=== PATIENT | male | born 1970 | race Caucasian/White ===

== ENCOUNTER 2017-01-27 14:56 | Inpatient (IN) | payer MEDICARE ==
[2017-01-27] MEDS ORDERED: NITROGLYCERIN OINT 1 INCH/GM PACKET TOPICAL STA (15:14)
[2017-01-27] MEDS ORDERED: ASPIRIN 81 MG CHEW PO STA (15:15)
[2017-01-27] MEDS ORDERED: hydrALAZINE HCL 20 MG/ML 1 ML VIAL IVP STA (15:15)
--- NOTE | 2017-01-27 15:17 | ED ---
General Adult HPI - General Chief complaint: Chest Pain Stated complaint: Hypertension Time Seen by Provider: 01/27/17 15:00 Source: patient, RN notes reviewed Mode of arrival: ambulatory Limitations: no limitations - History of Present Illness Initial comments: This is a 46-year-old male who presents emergency Department complaining that he has had right-sided chest pain for a week he states the pain is constant. Patient states the pain is been getting worse throughout the week. Patient decided to go see his primary medical care doctor today at which point time he is told blood pressures 230 for the doctor [facility] emergency department. Patient states he has not noted any difficult breathing with this chest pain he denies any diaphoresis. Patient denies any nausea. Patient denies abdominal pain patient denies any back pain or injury. Patient denies any headache patient denies numbness weakness. Patient denies lightheadedness dizziness or numbness up so. Patient denies any recent fever chills or cough. Patient denies any palpitations. - Related Data Home Medications Medication Instructions Recorded Confirmed Diazepam [Valium] 5 mg PO HS 01/27/17 01/27/17 HYDROcodone/APAP 10-325MG [[place] 1 tab PO TID PRN 01/27/17 01/27/17 10-325] Allergies Allergy/AdvReac Type Severity Reaction Status Date / Time No Known Allergies Allergy Verified 01/27/17 15:42 Review of Systems ROS Statement: Those systems with pertinent positive or pertinent negative responses have been documented in the HPI. ROS Other: All systems not noted in ROS Statement are negative. Past Medical History Past Medical History: No Reported History History of Any Multi-Drug Resistant Organisms: None Reported Past Surgical History: Hernia Repair Additional Past Surgical History / Comment(s): back Past Psychological History: No Psychological Hx Reported Smoking Status: Current every day smoker Past Alcohol Use History: None Reported Past Drug Use History: Marijuana General Exam - General Exam Comments Initial Comments: GENERAL: Patient is well-developed and well-nourished. Patient is nontoxic and well- hydrated and is in mild distress. ENT: Neck is soft and supple. No significant lymphadenopathy is noted. Oropharynx is clear. Moist mucous membranes. Neck has full range of motion without eliciting any pain. EYES: The sclera were anicteric and conjunctiva were pink and moist. Extraocular movements were intact and pupils were equal round and reactive to light. Eyelids were unremarkable. PULMONARY: Unlabored respirations. Good breath sounds bilaterally. No audible rales rhonchi or wheezing was noted. CARDIOVASCULAR: There is a regular rate and rhythm without any murmurs gallops or rubs. ABDOMEN: Soft and nontender with normal bowel sounds. No palpable organomegaly was noted. There is no palpable pulsatile mass. SKIN: Skin is clear with no lesions or rashes and otherwise unremarkable. NEUROLOGIC: Patient is alert and oriented x3. Cranial nerves II through XII are grossly intact. Motor and sensory are also intact. Normal speech, volume and content. Symmetrical smile. MUSCULOSKELETAL: Normal extremities with adequate strength and full range of motion. No lower extremity swelling or edema. No calf tenderness. LYMPHATICS: No significant lymphadenopathy is noted PSYCHIATRIC: Normal psychiatric evaluation. Normal interpersonal interactions appears functionally intact in deals appropriately with others. No signs of depression. No signs of anxiety. Limitations: no limitations Course Vital Signs 01/27/17 01/27/17 01/27/17 14:57 15:57 16:32 Temperature 97.6 F 98.3 F Pulse Rate 120 H 101 H 95 Respiratory 18 16 16 Rate Blood Pressure 227/131 205/121 196/124 O2 Sat by Pulse 99 97 99 Oximetry Medical Decision Making - Medical Decision Making EKG shows sinus tachycardia at 101 bpm NE interval is 142 QRS is under 12 QTC intervals 400 QTC is 518. Patient's EKG shows no ST segment elevation or depression or T-wave abdomen is noted. Chest x-ray showed no acute abnormality. A spoke with Dr. Izaguirre doctors she wanted the patient admitted the patient. - Lab Data Result diagrams: 01/27/17 15:45 01/27/17 15:45 Lab Results 01/27/17 01/27/17 01/27/17 Range/Units 15:45 15:45 15:45 WBC 12.1 H (3.8-10.6) k/uL RBC 5.83 (4.30-5.90) m/uL Hgb 17.5 (13.0-17.5) gm/dL Hct 54.3 H (39.0-53.0) % MCV 93.1 (80.0-100.0) fL MCH 30.0 (25.0-35.0) pg MCHC 32.2 (31.0-37.0) g/dL RDW 14.7 (11.5-15.5) % Plt Count 234 (150-450) k/uL Neutrophils % 66 % Lymphocytes % 24 % Monocytes % 6 % Eosinophils % 2 % Basophils % 1 % Neutrophils # 7.9 H (1.3-7.7) k/uL Lymphocytes # 2.9 (1.0-4.8) k/uL Monocytes # 0.7 (0-1.0) k/uL Eosinophils # 0.2 (0-0.7) k/uL Basophils # 0.1 (0-0.2) k/uL PT (9.0-12.0) sec INR (<1.1) APTT (22.0-30.0) sec Sodium 146 H (137-145) mmol/L Potassium 4.2 (3.5-5.1) mmol/L Chloride 106 (98-107) mmol/L Carbon Dioxide 31 H (22-30) mmol/L Anion Gap 9 mmol/L BUN 18 (9-20) mg/dL Creatinine 1.17 (0.66-1.25) mg/dL Est GFR (MDRD) Af Amer >60 (>60 ml/min/1.73 sqM) Est GFR (MDRD) Non-Af >60 (>60 ml/min/1.73 sqM) Glucose 98 (74-99) mg/dL Calcium 9.9 (8.4-10.2) mg/dL Magnesium 2.1 (1.6-2.3) mg/dL Total Bilirubin 0.8 (0.2-1.3) mg/dL AST 33 (17-59) U/L ALT 44 (21-72) U/L Alkaline Phosphatase 101 (38-126) U/L Total Creatine Kinase 57 (55-170) U/L CK-MB (CK-2) 0.7 (0.0-2.4) ng/mL CK-MB (CK-2) Rel Index 1.2 Troponin I <0.012 (0.000-0.034) ng/mL Total Protein 7.8 (6.3-8.2) g/dL Albumin 4.6 (3.5-5.0) g/dL 01/27/17 Range/Units 15:45 WBC (3.8-10.6) k/uL RBC (4.30-5.90) m/uL Hgb (13.0-17.5) gm/dL Hct (39.0-53.0) % MCV (80.0-100.0) fL MCH (25.0-35.0) pg MCHC (31.0-37.0) g/dL RDW (11.5-15.5) % Plt Count (150-450) k/uL Neutrophils % % Lymphocytes % % Monocytes % % Eosinophils % % Basophils % % Neutrophils # (1.3-7.7) k/uL Lymphocytes # (1.0-4.8) k/uL Monocytes # (0-1.0) k/uL Eosinophils # (0-0.7) k/uL Basophils # (0-0.2) k/uL PT 10.3 (9.0-12.0) sec INR 1.0 (<1.1) APTT 24.5 (22.0-30.0) sec Sodium (137-145) mmol/L Potassium (3.5-5.1) mmol/L Chloride (98-107) mmol/L Carbon Dioxide (22-30) mmol/L Anion Gap mmol/L BUN (9-20) mg/dL Creatinine (0.66-1.25) mg/dL Est GFR (MDRD) Af Amer (>60 ml/min/1.73 sqM) Est GFR (MDRD) Non-Af (>60 ml/min/1.73 sqM) Glucose (74-99) mg/dL Calcium (8.4-10.2) mg/dL Magnesium (1.6-2.3) mg/dL Total Bilirubin (0.2-1.3) mg/dL AST (17-59) U/L ALT (21-72) U/L Alkaline Phosphatase (38-126) U/L Total Creatine Kinase (55-170) U/L CK-MB (CK-2) (0.0-2.4) ng/mL CK-MB (CK-2) Rel Index Troponin I (0.000-0.034) ng/mL Total Protein (6.3-8.2) g/dL Albumin (3.5-5.0) g/dL Disposition Clinical Impression: Chest pain, Hypertensive urgency Disposition: ADMITTED IP TO THIS HOSP Referrals: James Izaguirre MD [Primary Care Provider] - 1-2 days Time of Disposition: 17:02
--- NOTE | 2017-01-27 16:03 | XR ---
EXAMINATION TYPE: XR chest 2V DATE OF EXAM: 01/27/2017 HISTORY: Chest Pain. REFERENCE: Previous study dated 11/13/2013. FINDINGS: There has been a previous ACDF in the lower cervical spine. The lungs are clear. Pleural space are clear. Heart size is normal. There is mild unfolding of the th oracic aorta. IMPRESSION: NO ACUTE INTRATHORACIC ABNORMALITY.
[2017-01-27 16:11] LABS: Basophils # (A) 0.1 k/uL (0-0.2); Basophils % (A) 1 %; CH 30.7; CHCM 33.1; Eosinophils # (A) 0.2 k/uL (0-0.7); Eosinophils % (A) 2 %; HCT 54.3 % (39.0-53.0); HDW 2.54; HGB 17.5 gm/dL (13.0-17.5); Luc # (Auto) 0.25; Luc % (Auto) 2; Lymphocytes # (A) 2.9 k/uL (1.0-4.8); Lymphocytes % (A) 24 %; MCHC 32.2 g/dL (31.0-37.0); MCV 93.1 fL (80.0-100.0); Mean Platelet Volume 7.5; Monocytes # (A) 0.7 k/uL (0-1.0); Monocytes % (A) 6 %; Neutrophils # (A) 7.9 k/uL (1.3-7.7); Neutrophils % (A) 66 %; RBC 5.83 m/uL (4.30-5.90); RDW 14.7 % (11.5-15.5); WBC 12.1 k/uL (3.8-10.6); WBC (Perox) 11.74
[2017-01-27 16:16] LABS: ALT 44 U/L (21-72); AST 33 U/L (17-59); Alkaline Phosphatase 101 U/L (38-126); Anion Gap 9 mmol/L; Blood Urea Nitrogen 18 mg/dL (9-20); Calcium 9.9 mg/dL (8.4-10.2); Carbon Dioxide 31 mmol/L (22-30); Chloride 106 mmol/L (98-107); Glucose 98 mg/dL (74-99); Magnesium 2.1 mg/dL (1.6-2.3); Non-African American GFR(MDRD) >60 (>60 ml/min/1.73 sqM); Partial Thromboplastin Time 24.5 sec (22.0-30.0); Potassium 4.2 mmol/L (3.5-5.1); Prothrombin Time 10.3 sec (9.0-12.0); Sodium 146 mmol/L (137-145); Total Bilirubin 0.8 mg/dL (0.2-1.3); Total Protein 7.8 g/dL (6.3-8.2)
[2017-01-27] MEDS ORDERED: LABETALOL 5 MG/ML VIAL MDV IVP STA ×2 (16:22→17:42)
[2017-01-27] MEDS ORDERED: LORazepam 2 MG/ML SYRINGE IV STA (16:22)
[2017-01-27 16:24] LABS: Creatine Kinase 57 U/L (55-170)
[2017-01-27 16:37] LABS: Creatine Kinase MB 0.7 ng/mL (0.0-2.4); Troponin I <0.012 ng/mL (0.000-0.034)
[2017-01-27] MEDS ORDERED: NITROGLYCERIN SL TABS 0.4 MG TAB SUBLINGUAL PRN (17:02)
[2017-01-27] MEDS ORDERED: LOSARTAN 50 MG TAB PO STA (19:36)
[2017-01-27] MEDS ORDERED: RX INFO: IV CONTRAST WAS GIVEN 1 EACH MISC MISCELLANE PRN (20:22)
--- NOTE | 2017-01-27 20:38 | P.CRDCN ---
History of Present Illness Consult reason: chest pain, hypertension History of present illness: Patient interviewed and examined Hypertensive urgency Right-sided chest discomfort radiating through into the interscapular region Dyslipidemia Likely obstructive sleep apnea Nondiabetic Current smoker ECG does not show any evidence for ischemia or any ST abnormalities, first troponin normal Plan Losartan 100 mg stat and then every morning Amlodipine at 11 PM tonight and then every afternoon Lipid panel in a.m. 2-D echo in a.m. 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 LIVES WITH AND 1 SON IN A SINGLE STORY HOME THAT HAS 5 STEPS. 1 PET CAT. 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 Smoking Status: Current every day smoker Past Alcohol Use History: None Reported Additional Past Alcohol Use History / Comment(s): STARTED SMOKING AT AGE 16(1985 ) SMOKES 1 PPD. Past Drug Use History: Marijuana - Past Family History Father Family Medical History: No Reported History Mother Family Medical History: No Reported History Additional Family Medical History / Comment(s): GRANDFATHER HAD DM Medications and Allergies Home Medications Medication Instructions Recorded Confirmed Type Diazepam [Valium] 5 mg PO HS 01/27/17 01/27/17 History HYDROcodone/APAP 10-325MG [[place] 1 tab PO TID PRN 01/27/17 01/27/17 History 10-325] Allergies Allergy/AdvReac Type Severity Reaction Status Date / Time No Known Allergies Allergy Verified 01/27/17 15:42 Physical Exam Vitals: Vital Signs Temp Pulse Resp BP Pulse Ox 01/27/17 17:55 85 16 163/108 95 01/27/17 17:26 180/124 01/27/17 17:19 184/122 01/27/17 17:05 180/118 01/27/17 16:49 173/115 01/27/17 16:32 95 16 196/124 99 01/27/17 15:57 98.3 F 101 H 16 205/121 97 01/27/17 15:34 116 H 227/133 01/27/17 15:15 228/147 01/27/17 14:57 97.6 F 120 H 18 227/131 99 Intake and Output 01/27/17 01/27/17 01/27/17 06:59 14:59 22:59 Other: Weight 78.018 kg Patient Weight 01/28/17 06:59 Weight 78.018 kg Results 01/27/17 15:45 01/27/17 15:45 Cardiac Enzymes 01/27/17 01/27/17 Range/Units 15:45 15:45 AST 33 (17-59) U/L CK-MB (CK-2) 0.7 (0.0-2.4) ng/mL Troponin I <0.012 (0.000-0.034) ng/mL Coagulation 01/27/17 Range/Units 15:45 PT 10.3 (9.0-12.0) sec APTT 24.5 (22.0-30.0) sec CBC 01/27/17 Range/Units 15:45 WBC 12.1 H (3.8-10.6) k/uL RBC 5.83 (4.30-5.90) m/uL Hgb 17.5 (13.0-17.5) gm/dL Hct 54.3 H (39.0-53.0) % Plt Count 234 (150-450) k/uL Comprehensive Metabolic Panel 01/27/17 Range/Units 15:45 Sodium 146 H (137-145) mmol/L Potassium 4.2 (3.5-5.1) mmol/L Chloride 106 (98-107) mmol/L Carbon Dioxide 31 H (22-30) mmol/L BUN 18 (9-20) mg/dL Creatinine 1.17 (0.66-1.25) mg/dL Glucose 98 (74-99) mg/dL Calcium 9.9 (8.4-10.2) mg/dL AST 33 (17-59) U/L ALT 44 (21-72) U/L Alkaline Phosphatase 101 (38-126) U/L Total Protein 7.8 (6.3-8.2) g/dL Albumin 4.6 (3.5-5.0) g/dL Current Medications Generic Name Dose Route Start Last Admin Trade Name Freq PRN Reason Stop Dose Admin Amlodipine Besylate 10 mg 01/27/17 23:00 Norvasc PO 01/27/17 23:01 ONCE ONE Amlodipine Besylate 10 mg 01/28/17 17:00 Norvasc PO DAILY@1700 [facility] Aspirin 325 mg 01/28/17 09:00 Aspirin PO DAILY [facility] Losartan Potassium 100 mg 01/28/17 09:00 Cozaar PO DAILY [facility] Miscellaneous Information 1 each 01/27/17 20:22 Rx Info: Iv Contrast Was Given MISCELLANE 01/29/17 20:23 DAILY PRN Per Protocol Nitroglycerin 1 inch 01/28/17 00:00 Nitro-Bid Oint TOPICAL Q6HR [facility] Nitroglycerin 0.4 mg 01/27/17 17:02 Nitrostat SUBLINGUAL Q5M PRN Chest Pain Intake and Output 01/27/17 01/27/17 01/27/17 06:59 14:59 22:59 Other: Weight 78.018 kg Patient Weight 01/28/17 06:59 Weight 78.018 kg 01/27/17 15:45 01/27/17 15:45
[2017-01-27] MEDS ORDERED: ACETAMINOPHEN TAB 325 MG TAB PO PRN (20:39)
--- NOTE | 2017-01-27 21:14 | CT ---
EXAMINATION TYPE: CT angio chest DATE OF EXAM: 01/27/2017 COMPARISON: NONE HISTORY: Right sided shoulder and chest pain with hypertension. CT DLP: 515.40 mGycm. Automated Exposure Control for Dose Reduction was Utilized. CONTRAST: CTA scan of the thorax is performed without and with IV Contrast, patient injected with 100 mL of Omn ipaque 350, pulmonary embolism protocol. MIP Images are created on CT scanner and reviewed. FINDINGS: LUNGS: The lungs are clear. Within the superior segment of the right lower lobe there is a 6 mm nonca lcified pulmonary nodule adjacent to a segmental pulmonary artery on image 36. Additionally within th e left lower lobe on the same image peripherally oriented in the subpleural location there is a 5 mm noncalcified pulmonary nodule. Within the posterior basilar segment of the left lower lobe there is a n additional noncalcified pulmonary nodule measuring 6.3 mm. Minimal bibasilar subsegmental atelectas is is noted. Another subpleural 3 mm pulmonary nodule is seen within the posterior basilar segment of the right lower lobe, also noncalcified. Within the right middle lobe there is a 4 mm pulmonary nodu le additionally within the lingula there is a 6 mm pulmonary nodule another right lower lobe pulmonar y nodule measures 4 mm and another right lower lobe pulmonary nodule measures 4 mm. There is no ple ural effusion or pneumothorax seen. The tracheobronchial tree is patent. MEDIASTINUM: Peripherally calcified mediastinal lymph nodes are present the largest measuring 9 mm in short axis in the pretracheal space. There is satisfactory enhancement of the pulmonary artery and i ts branches, there is no CT evidence for pulmonary embolism. There are no greater than 1 cm hilar or mediastinal lymph nodes. No cardiomegaly or pericardial effusion is seen. Portions of anterior cer vical fusion device are noted. OTHER: No additional significant abnormality is seen. The left kidney appears to be slightly malrota sai with a probable calyceal diverticulum in the left upper pole. IMPRESSION: 1. No evidence of pulmonary embolus. 2. Numerous noncalcified pulmonary nodules predominating within the lower lobes, all subcentimeter wi th the largest measuring up to 6 mm. Additionally peripherally calcified mediastinal lymph nodes are seen and os pulmonary nodules may be sequela of granulomatous disease, however neoplastic etiologies are not ruled out. Short-term follow-up evaluation or PET scan could be considered.
--- NOTE | 2017-01-27 21:14 | CONS ---
I was called by the nurse, stating that Mr. Herbert was admitted with right-sided chest discomfort radiating through to his back in the interscapular region and very high blood pressure. His blood pressure was 190/110 mmHg initially. I ordered 100 mg of losartan stat p.o. followed by amlodipine at 11:00 p.m. this evening. He had already received IV drugs in the ER, but no oral drugs were prescribed. When I interviewed the patient this evening, he had yet to receive his losartan and he got his losartan when I was there in my presence. For the last one week or so, he has been complaining of pain in the right side of the chest that radiates through to his back into the interscapular region. There is no tenderness in the interscapular region. There is no muscle tenderness. There is no bony tenderness. He denied any headaches, but now with the nitro paste he had a headache and this is being taken off. No shortness of breath. No orthopnea or PND. His states he stops breathing at night and he grunts and gasps. No dizziness, light-headedness. No loss of consciousness. REVIEW OF SYSTEMS: No fever, chills, rigors. No cough or expectoration. No nausea, vomiting or diarrhea. No hematuria or dysuria. No strokes or seizure. No skin lesions. No musculoskeletal complaints. SOCIAL HISTORY: He has been a smoker. He continues to smoke at this time. No alcohol use. PAST SURGERIES: He has had an umbilical hernia surgery and cervical fusion. He is on disability. FAMILY HISTORY: Family history of diabetes. No heart disease. On examination, his blood pressure is significantly elevated, but the systolics are in the 170 to 190 range and the diastolics are between 90 and 100 mmHg. Head and neck are normal. Heart sounds are normal. Lungs are clear to auscultation. EXTREMITIES: Warm. No edema. IMPRESSION: 1. Uncontrolled hypertension. 2. History of dyslipidemia. 3. Likely sleep apnea. 4. Chest discomfort on the right side radiating through to the back. Rule out aortic dissection with a CT angiogram tonight, lipid panel tomorrow, 2-D echo and Doppler study tomorrow. Starting tomorrow, losartan 100 mg will be given in the morning and amlodipine 10 mg in the evening. It is quite likely he will stay in the hospital for at least 2 to 3 days. His labs are reviewed. His electrolytes are normal. His kidney function is normal. Troponins are normal.
[2017-01-27 22:24] LABS: Creatine Kinase MB 0.7 ng/mL (0.0-2.4); Troponin I 0.02 ng/mL (0.000-0.034)
[2017-01-27] MEDS ORDERED: amLODIPine 10 MG TAB PO ONE (23:00)
[2017-01-28] MEDS ORDERED: NITROGLYCERIN OINT 1 INCH/GM PACKET TOPICAL SCH
[2017-01-28 04:18] LABS: Cholesterol 281 mg/dL (<200); HDL Cholesterol 42 mg/dL (40-60); Triglycerides 238 mg/dL (<150)
[2017-01-28 04:37] LABS: Creatine Kinase MB 0.5 ng/mL (0.0-2.4); Troponin I 0.027 ng/mL (0.000-0.034)
[2017-01-28] MEDS ORDERED: HYDROcodone/APAP 10-325MG 1 EACH TAB PO PRN (07:50)
--- NOTE | 2017-01-28 08:07 | P.HPIM ---
History of Present Illness H&P Date: 01/28/17 Chief Complaint: Elevated blood pressure. This is a history of physical and 46-year-old white male who was returning to my practice after long absence, for many years ago. He was essentially requesting medication refills but had significant hypertensive urgency/ emergency. He was immediately transferred to the emergency room after evaluation and admitted appropriately for significant hypertensive control. Patient was complaining of right-sided chest pain but no visual problems, headaches or edema or stated or noted. Norvasc and Cozaar has been started. Blood pressure is still quite elevated to 180/190 systolic. Review of Systems Constitutional: Denies chills, Denies fever Eyes: denies blurred vision, denies pain Ears, nose, mouth and throat: Denies headache, Denies sore throat Cardiovascular: Denies chest pain Respiratory: Denies cough Gastrointestinal: Denies abdominal pain, Denies diarrhea, Denies nausea, Denies vomiting Musculoskeletal: Denies myalgias Integumentary: Denies pruritus, Denies rash Neurological: Denies numbness, Denies weakness Psychiatric: Denies anxiety, Denies depression Endocrine: Reports as per HPI Past Medical History Past Medical History: No Reported History Additional Past Medical History / Comment(s): KIDNEY STONES, "HEARTBURN", "PAST ULCER FOUND WHEN HERNIA SX DONE", 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 LIVES WITH AND 1 SON IN A SINGLE STORY HOME THAT HAS 5 STEPS. 1 PET CAT. 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 Smoking Status: Current every day smoker Past Alcohol Use History: None Reported Additional Past Alcohol Use History / Comment(s): STARTED SMOKING AT AGE 16(1985 ) SMOKES 1 PPD. Past Drug Use History: Marijuana - Past Family History Father Family Medical History: No Reported History Mother Family Medical History: No Reported History Additional Family Medical History / Comment(s): GRANDFATHER HAD DM Medications and Allergies Home Medications Medication Instructions Recorded Confirmed Type Diazepam [Valium] 5 mg PO HS 01/27/17 01/27/17 History HYDROcodone/APAP 10-325MG [[place] 1 tab PO TID PRN 01/27/17 01/27/17 History 10-325] Allergies Allergy/AdvReac Type Severity Reaction Status Date / Time No Known Allergies Allergy Verified 01/27/17 15:42 Physical Exam Vitals: Vital Signs Temp Pulse Pulse Resp BP BP BP 01/28/17 05:49 81 170/91 183/106 01/28/17 04:00 89 18 01/28/17 03:00 89 18 192/104 192/97 01/28/17 00:00 98.4 F 84 18 187/122 01/27/17 20:00 97.9 F 85 18 187/99 179/113 01/27/17 17:55 85 16 163/108 01/27/17 17:26 180/124 01/27/17 17:19 184/122 01/27/17 17:05 180/118 01/27/17 16:49 173/115 01/27/17 16:32 95 16 196/124 01/27/17 15:57 98.3 F 101 H 16 205/121 01/27/17 15:34 116 H 227/133 01/27/17 15:15 228/147 01/27/17 14:57 97.6 F 120 H 18 227/131 Pulse Ox 01/28/17 05:49 01/28/17 04:00 01/28/17 03:00 95 01/28/17 00:00 94 L 01/27/17 20:00 96 01/27/17 17:55 95 01/27/17 17:26 01/27/17 17:19 01/27/17 17:05 01/27/17 16:49 01/27/17 16:32 99 01/27/17 15:57 97 01/27/17 15:34 01/27/17 15:15 01/27/17 14:57 99 Intake and Output 01/27/17 01/28/17 01/28/17 22:59 06:59 14:59 Other: Voiding Method Toilet Toilet # Voids 3 Weight 76 kg - Constitutional General appearance: no acute distress - EENT Eyes: EOMI - Neck Neck: no lymphadenopathy - Respiratory Respiratory: bilateral: CTA - Cardiovascular Rhythm: regular Heart sounds: normal: S1, S2 - Gastrointestinal General gastrointestinal: soft, no tenderness - Integumentary Integumentary: no cellulitis - Neurologic Neurologic: CNII-XII intact - Musculoskeletal Musculoskeletal: no gait normal - Psychiatric Psychiatric: A&O x's 3, appropriate affect, intact judgment & insight Results CBC & Chem 7: 01/27/17 15:45 01/27/17 15:45 Labs: Abnormal Lab Results - Last 24 Hours (Table) 01/27/17 01/27/17 01/27/17 Range/Units 15:45 15:45 21:30 WBC 12.1 H (3.8-10.6) k/uL Hct 54.3 H (39.0-53.0) % Neutrophils # 7.9 H (1.3-7.7) k/uL Sodium 146 H (137-145) mmol/L Carbon Dioxide 31 H (22-30) mmol/L Total Creatine Kinase 52 L (55-170) U/L Triglycerides (<150) mg/dL Cholesterol (<200) mg/dL LDL Cholesterol, Calc (0-99) mg/dL 01/28/17 01/28/17 Range/Units 03:42 03:42 WBC (3.8-10.6) k/uL Hct (39.0-53.0) % Neutrophils # (1.3-7.7) k/uL Sodium (137-145) mmol/L Carbon Dioxide (22-30) mmol/L Total Creatine Kinase 52 L (55-170) U/L Triglycerides 238 H (<150) mg/dL Cholesterol 281 H (<200) mg/dL LDL Cholesterol, Calc 191 H (0-99) mg/dL Thrombosis Risk Factor Assmnt - Choose All That Apply Any of the Below Risk Factors Present?: Yes Each Factor Represents 1 point: Age 41-60 years, Obesity (BMI >25) Other Risk Factors: No Other congenital or acquired thrombophilia - If yes, enter type in comment: No Thrombosis Risk Factor Assessment Total Risk Factor Score: 2 Thrombosis Risk Factor Assessment Level: Low Risk Assessment and Plan (1) Chest pain Status: Acute (2) Hypertensive urgency Status: Acute Plan: Slowly titrate medication. Check CMP in a.m. I appreciate cardiology input. Dr. Obed hanks covering for the weekend. Anticipate discharge in next 48-72 hours. Blood pressure still is poorly controlled. Time with Patient: Greater than 30
[2017-01-28] MEDS ORDERED: ASPIRIN 325 MG TAB PO SCH (09:00)
[2017-01-28] MEDS: LOSARTAN 50 MG TAB PO SCH (09:12)
[2017-01-28] MEDS: TRIAMTERENE-HCTZ 37.5-25MG 1 EACH CAP PO SCH (09:12)
--- NOTE | 2017-01-28 10:21 | ECHOF ---
Referral Reason:HTN urgency MEASUREMENTS -------- HEIGHT: 165.1 cm WEIGHT: 78.0 kg BP: 170/91 IVSd: 1.6 cm (0.6 - 1.1) LVIDd: 4.5 cm (3.9 - 5.3) LVPWd: 1.4 cm (0.6 - 1.1) IVSs: 1.6 cm LVIDs: 3.6 cm LVPWs: 2.1 cm Ao Diam: 3.4 cm (2.0 - 3.7) AV Cusp: 1.8 cm (1.5 - 2.6) LA Diam: 2.4 cm (2.7 - 3.8) MV EXCURSION: 15.271 mm (> 18.000) MV EF SLOPE: 108 mm/s (70 - 150) EPSS: 1.4 cm MV E Kt: 0.81 m/s MV DecT: 161 ms MV A Kt: 0.92 m/s MV E/A Ratio: 0.88 RAP: 5.00 mmHg RVSP: 8.86 mmHg FINDINGS -------- Sinus rhythm. This was a technically good study. There is moderate concentric left ventricular hypertrophy. Overall left ventricular systolic function is normal with, an EF between 55 - 60 %. The right ventricle is normal in size and function. The left atrium is normal in size. The right atrium is normal in size. The aortic valve is trileaflet, and appears structurally normal. No aortic stenosis or regurgitation. The mitral valve leaflets are mildly thickened. There is trace mitral regurgitation. Trace tricuspid regurgitation present. The right ventricular systolic pressure, as measured by Doppler, is 8.86mmHg. Pulmonic valve appears structurally normal. The aortic root size is normal. The pericardium is normal. CONCLUSIONS -------- 1. Sinus rhythm. 2. There is trace mitral regurgitation. 3. Trace tricuspid regurgitation present. 4. The right ventricular systolic pressure, as measured by Doppler, is 8.86mmHg. 5. Pulmonic valve appears structurally normal. 6. The aortic root size is normal. 7. The pericardium is normal. 8. This was a technically good study. 9. There is moderate concentric left ventricular hypertrophy. 10. Overall left ventricular systolic function is normal with, an EF between 55 - 60 %. 11. The right ventricle is normal in size and function. 12. The left atrium is normal in size. 13. The right atrium is normal in size. 14. The aortic valve is trileaflet, and appears structurally normal. No aortic stenosis or regurgitation. 15. The mitral valve leaflets are mildly thickened. CUSTOMS INSPECTOR: Zofia Parr RDCS
--- NOTE | 2017-01-28 13:22 | P.PN ---
Subjective Principal diagnosis: chest pain, hypertension This is a pleasant 46-year-old gentleman with no significant medical history, he is a current smoker. His emergency department with right-sided chest discomfort radiating through to his right back and shoulder region as well as very high blood pressure. His blood pressure was 190/110 initially. It almost certain 100 mg by mouth daily as well as amlodipine 10 mg by mouth daily. Patient did undergo CT of the chest to rule out aortic dissection, no mention of the aorta is in the report, radiology has been notified requesting that an addendum be made to the report. Report did state the patient was negative for PE. Showed some pulmonary nodules and recommended a PET scan as follow-up. Upon examination this morning, patient is feeling well. Denies any complaints of headaches, dizziness or lightheadedness. He continues to complain of right shoulder pain mostly with movement and while sitting. The pressure remains elevated. Lipids were drawn this morning that showed an LDL of 191. Objective - Vital Signs Vital signs: Vital Signs Temp 98.8 F 01/28/17 08:00 Pulse 85 01/28/17 08:00 Resp 18 01/28/17 08:00 BP 187/109 01/28/17 08:00 Pulse Ox 93 L 01/28/17 08:00 Intake & Output 01/27/17 01/28/17 01/28/17 18:59 06:59 18:59 Intake Total 237 Balance 237 Weight 78.018 kg 76 kg Intake: Oral 237 Other: Voiding Method Toilet Toilet # Voids 3 2 - Exam PHYSICAL EXAMINATION: HEENT: Head is atraumatic, normocephalic. Pupils equal, round. Neck is supple. There is no elevated jugular venous pressure. HEART EXAMINATION: Heart sounds regular, S1 and S2 normal. No murmur or gallop heard. CHEST EXAMINATION: Lungs are clear to auscultation and precussion. No chest wall tenderness is noted on palpation or with deep breathing. ABDOMEN: Soft, nontender. Bowel sounds are heard. No organomegaly noted. EXTREMITIES: 2+ peripheral pulses with no evidence of peripheral edema and no calf tenderness noted. NEUROLOGIC patient is awake, alert and oriented x3. . - Labs CBC & Chem 7: 01/27/17 15:45 01/27/17 15:45 Labs: Abnormal Lab Results - Last 24 Hours (Table) 01/27/17 01/27/17 01/27/17 Range/Units 15:45 15:45 21:30 WBC 12.1 H (3.8-10.6) k/uL Hct 54.3 H (39.0-53.0) % Neutrophils # 7.9 H (1.3-7.7) k/uL Sodium 146 H (137-145) mmol/L Carbon Dioxide 31 H (22-30) mmol/L Total Creatine Kinase 52 L (55-170) U/L Triglycerides (<150) mg/dL Cholesterol (<200) mg/dL LDL Cholesterol, Calc (0-99) mg/dL 01/28/17 01/28/17 Range/Units 03:42 03:42 WBC (3.8-10.6) k/uL Hct (39.0-53.0) % Neutrophils # (1.3-7.7) k/uL Sodium (137-145) mmol/L Carbon Dioxide (22-30) mmol/L Total Creatine Kinase 52 L (55-170) U/L Triglycerides 238 H (<150) mg/dL Cholesterol 281 H (<200) mg/dL LDL Cholesterol, Calc 191 H (0-99) mg/dL Assessment and Plan Plan: Assessment and plan #1 uncontrolled hypertension #2 dyslipidemia with significantly elevated LDL #3 likely sleep apnea #4 right sided chest discomfort radiating through to the back, atypical for angina From cardiology's perspective, we will add Dyazide as well as Catapres 0.2 mg by mouth 3 times a day. We'll start the patient on atorvastatin 40 mg by mouth daily at bedtime. Continue to closely monitor blood pressures. Will request review of computed tomography scan to definitively rule out aortic dissection. Further recommendations to follow. The above dictated assessment and findings were discussed with signing physician. The impression and plan of care have been directed as dictated. Erum Villalba, Nurse Practitioner, acting as scribe for signing physician.
[2017-01-28] MEDS: cloNIDine HCL 0.2 MG TAB PO SCH ×2 (15:35→20:50)
[2017-01-28] MEDS: amLODIPine 10 MG TAB PO SCH (15:35)
[2017-01-28] MEDS ORDERED: ATORVASTATIN 40 MG TAB PO SCH (21:00)
[2017-01-28] MEDS ORDERED: DIAZEPAM 5 MG TAB PO SCH (21:00)
[2017-01-28 21:36] VITALS: TEMP 97.8
[2017-01-29] MEDS: TRIAMTERENE-HCTZ 37.5-25MG 1 EACH CAP PO SCH (08:31)
[2017-01-29] MEDS: LOSARTAN 50 MG TAB PO SCH (08:31)
[2017-01-29] MEDS: cloNIDine HCL 0.2 MG TAB PO SCH ×2 (08:31→16:07)
[2017-01-29 09:18] LABS: Anion Gap 12 mmol/L; Blood Urea Nitrogen 25 mg/dL (9-20); Carbon Dioxide 23 mmol/L (22-30); Chloride 106 mmol/L (98-107); Glucose 197 mg/dL (74-99); Non-African American GFR(MDRD) 56 (>60 ml/min/1.73 sqM); Potassium 3.4 mmol/L (3.5-5.1); Sodium 141 mmol/L (137-145)
--- NOTE | 2017-01-29 11:45 | P.PN ---
Subjective Principal diagnosis: chest pain, hypertension This is a pleasant 46-year-old gentleman with no significant medical history, he is a current smoker. His emergency department with right-sided chest discomfort radiating through to his right back and shoulder region as well as very high blood pressure. His blood pressure was 190/110 initially. It almost certain 100 mg by mouth daily as well as amlodipine 10 mg by mouth daily. Patient did undergo CT of the chest to rule out aortic dissection, no mention of the aorta is in the report, radiology has been notified requesting that an addendum be made to the report. Report did state the patient was negative for PE. Showed some pulmonary nodules and recommended a PET scan as follow-up. Upon examination this morning, patient is feeling well. Denies any complaints of headaches, dizziness or lightheadedness. He continues to complain of right shoulder pain mostly with movement and while sitting. Medications were adjusted yesterday and blood pressure is much better controlled than previously. Objective - Vital Signs Vital signs: Vital Signs Temp 97.8 F 01/28/17 20:00 Pulse 70 01/29/17 08:47 Resp 15 01/29/17 08:47 BP 154/96 01/29/17 08:41 Pulse Ox 99 01/29/17 08:41 Intake & Output 01/28/17 01/29/17 01/29/17 18:59 06:59 18:59 Intake Total 474 0 680 Output Total 400 Balance 74 0 680 Weight 75.2 kg Intake: IV 0 0 NS 0 0 Oral 474 680 Output: Urine 400 Other: Voiding Method Toilet Toilet # Voids 2 1 - Exam PHYSICAL EXAMINATION: HEENT: Head is atraumatic, normocephalic. Pupils equal, round. Neck is supple. There is no elevated jugular venous pressure. HEART EXAMINATION: Heart sounds regular, S1 and S2 normal. No murmur or gallop heard. CHEST EXAMINATION: Lungs are clear to auscultation and precussion. No chest wall tenderness is noted on palpation or with deep breathing. ABDOMEN: Soft, nontender. Bowel sounds are heard. No organomegaly noted. EXTREMITIES: 2+ peripheral pulses with no evidence of peripheral edema and no calf tenderness noted. NEUROLOGIC patient is awake, alert and oriented x3. . - Labs CBC & Chem 7: 01/27/17 15:45 01/29/17 08:44 Labs: Abnormal Lab Results - Last 24 Hours (Table) 01/29/17 Range/Units 08:44 Potassium 3.4 L (3.5-5.1) mmol/L BUN 25 H (9-20) mg/dL Creatinine 1.36 H (0.66-1.25) mg/dL Glucose 197 H (74-99) mg/dL Assessment and Plan Plan: Assessment and plan #1 uncontrolled hypertension #2 dyslipidemia with significantly elevated LDL #3 likely sleep apnea #4 right sided chest discomfort radiating through to the back, atypical for angina From cardiology's perspective, patient is stable for discharge home. Continue by mouth daily at 5 PM, atorvastatin 40 by mouth daily at bedtime, clonidine 0.2 mg by mouth 3 times a day, losartan 100 mg by mouth daily and Dyazide. Discussed in great detail importance of smoking cessation with the patient. He will follow up with Dr. Glasgow in one to 2 weeks as an outpatient. The above dictated assessment and findings were discussed with signing physician. The impression and plan of care have been directed as dictated. Erum Villalba, Nurse Practitioner, acting as scribe for signing physician.
[2017-01-29 12:37] VITALS: RESP 16
[2017-01-29] MEDS ORDERED: POTASSIUM CHLORIDE ER 20 MEQ TAB.ER PO STA (15:42)
[2017-01-29] MEDS: amLODIPine 10 MG TAB PO SCH (16:08)
[2017-01-29 16:47] VITALS: BP 154/105; PULSE 64
--- NOTE | 2017-01-30 11:04 | DS ---
DATE OF ADMISSION: 01/27/2017 DATE OF DISCHARGE: 01/29/2017 Patient is a very pleasant 46-year-old gentleman who was admitted secondary to possible hypertensive emergency and hypertensive emergency and accelerated hypertension. Patient is feeling better, but the patient wanted to be discharged and patient is insisting with me the patient insists on discharge. My concern is patient has increased creatinine from 1.17 to 1.36. Patient's blood pressure although has normalized, it dropped from about 200s. Patient systolics at one point of time is 212. Came down to around 130, my concern is that may have affected the kidneys, sudden drop in blood pressure leading to acute tubular necrosis, although patient is on a couple of antihypertensive medication that can directly affect the kidney or Dyazide that is Chlorthalidone and diuretic combination medication along with losartan which can also affect the kidneys. As patient is insisting on discharge, I will go ahead and discharge the patient, but patient will be asked to check the blood pressure daily at home. Patient was started on 4 different medications in the hospital including losartan, clonidine, amlodipine and Dyazide and at the same time, which can definitely affect the renal function and amlodipine is a long acting medication. Peak action received in 3 to 7 days. Because of that reason, I believe his blood pressure is going to go down in spite of discontinuation of Dyazide. I am discontinuing Dyazide because of hypokalemia and also worsening renal function and renal function will be repeated again. Basic metabolic profile will be repeated and results to be faxed to primary care physician. If it continues to worsen, then the losartan needs to be discontinued and the other consideration needs to be given that patient may have acute tubular necrosis. Further evaluation can be done as mentioned above as an outpatient. Patient will be discharged today. Patient's blood pressure actually came down to 125/78 at some point of time. The patient was seen and examined on the day of discharge. Vitals are stable. PHYSICAL EXAMINATION: GENERAL: The patient is alert and oriented x3, not in any acute distress. Well developed, well nourished. HEENT: Pupils are round and equally reacting to light. EOMI. No scleral icterus. No conjunctival pallor. Normocephalic, atraumatic. No pharyngeal erythema. No thyromegaly. CARDIOVASCULAR: S1 and S2 present. No murmurs, rubs, or gallops. PULMONARY: Chest is clear to auscultation, no wheezing or crackles. ABDOMEN: Soft, nontender, nondistended, normoactive bowel sounds. No palpable organomegaly. MUSCULOSKELETAL: No joint swelling or deformity. EXTREMITIES: No cyanosis, clubbing, or pedal edema. NEUROLOGICAL: Gross neurological examination did not reveal any focal deficits. SKIN: No rashes. FINAL DIAGNOSIS(ES): 1. Hypertensive emergency and accelerated hypertension. 2. Right arm pain which is a musculoskeletal pain. I do not believe that is cardiac pain secondary to hypertensive emergency. 3. Hyperlipidemia for which patient will be started on a statin. 4. Nicotine cessation counseling was provided. Patient will follow with Dr. James Izaguirre in about 3 to 7 days. Activity as tolerated. Cardiac diet. Nicotine cessation counseling was provided. Spent greater than 35 minutes in total discharge process. I counseled extensively regarding the appropriate way to measure the blood pressure at home and take it to primary care physician, Dr. Izaguirre.
== END 2017-01-29 17:30 | disposition home or self-care (01) | DRG 305 ==
LOC: EC 14:56 → 6SEL 17:05
PROVIDERS: ADMIT Family Medicine; ATTEND Family Medicine
DX: I10 Essential (primary) hypertension (principal); E78.5 Hyperlipidemia, unspecified; E87.6 Hypokalemia; F17.200 Nicotine dependence, unspecified, uncomplicated; G47.33 Obstructive sleep apnea (adult) (pediatric); M25.511 Pain in right shoulder; R07.89 Other chest pain; F40.240 Claustrophobia; Z79.899 Other long term (current) drug therapy; Z98.1 Arthrodesis status
CPT/HCPCS: 36415; 71020; 71275; 80048; 80053; 80061; 82088; 82533; 82550; 82553; 83735; 83835; 84244; 84484; 85025; 85610; 85730; 93005; 93306; 96374; 96375; 96376; 99285

== ENCOUNTER → 2017-02-25 | Outpatient (CLI) | payer MEDICARE ==
--- NOTE | 2017-02-25 11:53 | XR ---
EXAMINATION TYPE: XR shoulder complete RT DATE OF EXAM: 02/25/2017 CLINICAL HISTORY: pain TECHNIQUE: Three views of the right shoulder are obtained. COMPARISON: None FINDINGS: There is no acute fracture/dislocation evident. The acromioclavicular and glenohumeral taz int spaces appear mildly narrowed.. The visualized ribs are intact and unremarkable. IMPRESSION: 1. There is no acute fracture or dislocation. ICD 10 NO FRACTURE, INITIAL EVALUATION
== END ==
LOC: RADXRMAIN 11:28
PROVIDERS: ATTEND Family Medicine
DX: M25.511 Pain in right shoulder (principal)

== ENCOUNTER → 2017-03-08 | Outpatient (CLI) | payer MEDICARE ==
--- NOTE | 2017-03-08 16:23 | CT ---
EXAMINATION TYPE: CT chest wo con DATE OF EXAM: 03/08/2017 COMPARISON: 01/27/2017 HISTORY: 46-year-old male complains of right side upper chest pain and tingling. Follow up study for known pulmonary nodules. TECHNIQUE: Contiguous axial scanning of the chest without IV contrast. Coronal and sagittal reconstru ctions performed. CT DLP: 270.6 mGycm Automated exposure control for dose reduction was used. FINDINGS: The heart is normal size without pericardial effusion. Aorta is normal caliber with conventional arch vessel branching anatomy. Stable prominent but nonenlarged 9 mm precarinal lymph node. Partially calcified subcarinal lymph nod es suggest prior granulomatous disease. Small calcified bilateral hilar lymph nodes are also present. 2 right lower lobe pulmonary nodules, axial image 39 and 42 show central calcification suggestive of prior granulomatous disease. A 5 mm medial right basilar pulmonary nodule is unchanged and shows no c lear calcification. Axial image 51. A few left lower lung pulmonary nodules, axial image 36, 40, 45, and 46 shows central calcification m ost suggestive of calcified granulomas. No definite suspicious pulmonary nodule on the left. No consolidation or pleural effusion. Calcified granulomas within the spleen. Partially visualized hypodense lesion measuring 2.4 cm fluid attenuation within the posterior upper pole right kidney most suggestive of a cyst. Cortical defect p osterior upper pole left kidney could represent sequela of prior vascular or infectious insult. Bones: No osseous destructive process. IMPRESSION: 1. PRIOR GRANULOMATOUS DISEASE WITH CALCIFIED SUBCARINAL AND BILATERAL HILAR LYMPH NODES, SCATTERED C ALCIFIED PULMONARY NODULES, AND CHRONIC SPLENIC GRANULOMAS WELL. 2. ONLY ONE VISUALIZED PULMONARY NODULE IS NONCALCIFIED MEASURING 5 MM AT THE MEDIAL RIGHT BASE. A 12 MONTH FOLLOW-UP CT CHEST CAN BE PERFORMED TO ENSURE STABILITY.
== END | disposition home or self-care (01) ==
LOC: RADCTMAIN 15:49
PROVIDERS: ATTEND Family Medicine
DX: D71 Functional disorders of polymorphonuclear neutrophils (principal); J98.59 Other diseases of mediastinum, not elsewhere classified; R91.1 Solitary pulmonary nodule; R59.0 Localized enlarged lymph nodes
CPT/HCPCS: 71250

== ENCOUNTER → 2018-11-20 | Outpatient (CLI) | payer MEDICARE ==
[2018-11-20 11:53] LABS: Blood Urea Nitrogen 16 mg/dL (9-20)
--- NOTE | 2018-11-20 13:21 | MR ---
MRI CERVICAL SPINE: CLINICAL HISTORY: Radiculopathy, spondylosis without myelopathy, and postlaminectomy syndrome operato r order. Headache with neck pain for 10 years causing pain and weakness into both arms and fingers pe r patient. TECHNIQUE: Multiplanar, multisequence imaging of the cervical spine is performed without and with IV contrast, 7 cc of gadolinium was given intravenously. COMPARISON: CT cervical spine November 13, 2013. FINDINGS: Sagittal images of the cervical spine show the craniocervical junction to remain within nor mal limits. The cervical and upper thoracic spinal cord is normal in course, caliber, and signal. Th ere is encroachment on anterior and posterior margins at C2-C3 level noted. Vertebral alignment is s table with reversal of curvature or cervical spine redemonstrated. Artifact from anterior fusion plat e and disc material C3-C7 levels is present. There is moderate disc space narrowing C2-C3 and C7-T1 l evels. Posterior disc herniation is seen at C2-C3 level on sagittal images. There is additional poste rior disc herniation effacing anterior thecal sac T2-T3 level sagittal image 7. No suspicious postcon trast enhancement is seen. Axial images at C2-C3 level show posterior broad-based disc protrusion effacing anterior thecal sac with flattening of spinal cord axial image 53, posterior encroachment from bony projection less well seen on axial images. There is marginal spurring causing mild bilateral neural foraminal narrowing. Axial images at C3-C4 level show artifact from fusion hardware, bilateral neural foramina are patent. Axial images at C4-C5 level show artifact from fusion hardware, marginal spurring causes [id number] rate left-sided neural foraminal narrowing. Axial images at C5-C6 levels artifact from fusion hardware, bilateral neural foramina are patent. Axial images at C6-C7 level show effacement the anterior thecal sac due to bony ossific projection se en best image 24, bilateral neural foramina are patent. Axial images at the C7-T1 level show artifact from fusion hardware with mild bilateral neural foramin al narrowing due to marginal spurring. Axial images at T1-T2 level are felt within normal limits on axial image 6. No suspicious enhancement is noted. IMPRESSION: Postsurgical change C3-C7 level with some reversal of normal cervical curvature at C7 lev el effacing anterior thecal sac. Disc herniation and posterior facet arthropathy causes most prominen t spinal canal stenosis or effacement at C2-C3 level seen best on sagittal images.
== END | disposition home or self-care (01) ==
LOC: RADMRIMAIN 10:51
PROVIDERS: ATTEND Physical Medicine & Rehabilitation
DX: M50.11 Cervical disc disorder with radiculopathy, high cervical region (principal); M46.92 Unspecified inflammatory spondylopathy, cervical region; M96.1 Postlaminectomy syndrome, not elsewhere classified; Z98.890 Other specified postprocedural states
CPT/HCPCS: 82565; 84520; 72156; 36415; A9585

== ENCOUNTER 2019-04-09 12:59 | Emergency (ER) | payer MEDICARE ==
[2019-04-09 14:02] VITALS: BP 142/96; PULSE 76; RESP 18; TEMP 97.2
[2019-04-09] MEDS ORDERED: KETOROLAC 30 MG/ML 1 ML VIAL IM STA (14:11)
--- NOTE | 2019-04-09 14:14 | ED ---
General Adult HPI - General Chief complaint: Back Pain/Injury Stated complaint: back pain Time Seen by Provider: 04/09/19 14:01 Source: patient, RN notes reviewed Mode of arrival: ambulatory Limitations: no limitations - History of Present Illness Initial comments: 48-year-old male with a past medical history of nephrolithiasis, GERD, hernia presents to the emergency department for right upper back pain. States this has been ongoing for several months. States he was working on some wiring in his attic yesterday when this worsened. States it radiates around his right side in sharp waves. Denies any chest pain or abdominal pain. States he had some numbness in the area yesterday. States he has felt a lump in this area before. States he has tried to have it massaged out but it does not help. States he has not followed up with his primary care provider for this. Denies any lower back pain. Denies any weakness in the arms or legs. Denies any bladder or bowel changes. No fevers or chills. No saddle anesthesia.Patient has no other complaints at this time including shortness of breath, chest pain, abdominal pain, nausea or vomiting, headache, or visual changes. - Related Data Home Medications Medication Instructions Recorded Confirmed Diazepam [Valium] 5 mg PO HS 01/27/17 01/27/17 HYDROcodone/APAP 10-325MG [Lebo 1 tab PO TID PRN 01/27/17 01/27/17 10-325] Previous Rx's Medication Instructions Recorded Atorvastatin [Lipitor] 40 mg PO HS #30 tablet 01/29/17 Losartan [Cozaar] 100 mg PO DAILY #30 tab 01/29/17 amLODIPine [Norvasc] 10 mg PO DAILY@1700 #30 tab 01/29/17 cloNIDine HCL [Catapres] 0.2 mg PO TID #90 tab 01/29/17 Allergies Allergy/AdvReac Type Severity Reaction Status Date / Time No Known Allergies Allergy Verified 04/09/19 14:01 Review of Systems ROS Statement: Those systems with pertinent positive or pertinent negative responses have been documented in the HPI. ROS Other: All systems not noted in ROS Statement are negative. 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) History of Any Multi-Drug Resistant Organisms: None Reported Past Surgical History: Hernia Repair Additional Past Surgical History / Comment(s): [facility] HERNIA /ULCER REPAIR, NECK FUSION "C2 THRU C7 HAS 2 ARTIFICAIL VERTEBRE", COLONOSCOPY/POLYPECTOMY BENIGN Past Anesthesia/Blood Transfusion Reactions: No Reported Reaction Additional Past Anesthesia/Blood Transfusion Reaction / Comment(s): CLAUSTERPHOBIA Past Psychological History: No Psychological Hx Reported Smoking Status: Current every day smoker Past Alcohol Use History: None Reported Past Drug Use History: Marijuana - Past Family History Father Family Medical History: No Reported History Mother Family Medical History: No Reported History Additional Family Medical History / Comment(s): GRANDFATHER HAD DM General Exam Limitations: no limitations General appearance: alert, in no apparent distress Head exam: Present: atraumatic, normocephalic, normal inspection Eye exam: Present: normal appearance ENT exam: Present: normal exam, mucous membranes moist Neck exam: Present: normal inspection, full ROM. Absent: tenderness, meningismus, lymphadenopathy Respiratory exam: Present: normal lung sounds bilaterally. Absent: respiratory distress, wheezes, rales, rhonchi, stridor Cardiovascular Exam: Present: regular rate, normal rhythm, normal heart sounds. Absent: systolic murmur, diastolic murmur, rubs, gallop, clicks GI/Abdominal exam: Present: soft, normal bowel sounds. Absent: distended, tenderness, guarding, rebound, rigid Back exam: Present: other (5 cm x 5 cm soft tissue mass slightly raised present the right upper back around ribs 4 and 5.). Absent: vertebral tenderness Neurological exam: Present: alert Psychiatric exam: Present: normal affect, normal mood Course Vital Signs 04/09/19 13:59 Temperature 97.2 F L Pulse Rate 76 Respiratory 18 Rate Blood Pressure 142/96 O2 Sat by Pulse 96 Oximetry Medical Decision Making - Medical Decision Making 48-year-old male with a past medical history of nephrolithiasis, GERD, hernia presents for right upper back pain. This is been ongoing for several months. States he has had a lump in his back. States his tried to have a massage but it does not help. On exam patient has a 5 cm x 5 cm slightly raised soft mass. This is likely a soft tissue mass such as a lipoma. Patient given Toradol, feeling somewhat better. Patient with Motrin and Tylenol for pain. He will follow up with general surgery and primary care. He will return here for is any worsening symptoms. Disposition Clinical Impression: Soft tissue mass Disposition: HOME SELF-CARE Condition: Good Instructions (If sedation given, give patient instructions): Soft Tissue Mass (ED) Additional Instructions: Please follow up with primary care in 1-2 days. Follow-up with Gen. surgery as well. Take Motrin and Tylenol for pain. If you have worsening symptoms return here to the emergency department. Is patient prescribed a controlled substance at d/c from ED?: No Referrals: Jh Urbina MD [REFERRING] - 1-2 days Asiya Townsend MD [STAFF PHYSICIAN] - 1-2 days Time of Disposition: 14:28
== END 2019-04-09 14:36 | disposition home or self-care (01) ==
LOC: EC 12:59
DX: R22.2 Localized swelling, mass and lump, trunk (principal); M54.6 Pain in thoracic spine; F17.200 Nicotine dependence, unspecified, uncomplicated; Z79.899 Other long term (current) drug therapy
CPT/HCPCS: 99283; 96372; J1885

== ENCOUNTER → 2019-04-25 | Outpatient (CLI) | payer MEDICARE ==
--- NOTE | 2019-04-25 14:46 | CT ---
EXAMINATION TYPE: CT chest wo con DATE OF EXAM: 04/25/2019 COMPARISON: 03/08/2017 HISTORY: Rt posterior chest mass CT DLP: 256.9 mGycm. Automated Exposure Control for Dose Reduction was Utilized. TECHNIQUE: CT scan of the thorax is performed without IV contrast. FINDINGS: LUNGS: There are multiple calcified granulomas seen bilaterally. Noncalcified subpleural 2 mm nodule superior segment right lower lobe too small to characterize but retrospectively stable.. There is n o pleural effusion or pneumothorax seen. The tracheobronchial tree is patent. MEDIASTINUM: Lack of IV contrast is noted to limit evaluation for mediastinal and especially hilar ad enopathy. There are no definitive greater than 1 cm hilar or mediastinal lymph nodes. Stable promine nt but nonenlarged 9 mm precarinal lymph node. Partially calcified subcarinal lymph nodes suggest juan c or granulomatous disease. Small calcified bilateral hilar lymph nodes are also present. No cardiomegaly or pericardial effusion is seen. OTHER: Calcified granulomas within the spleen. Partially visualized hypodense lesion measuring 2.4 c m fluid attenuation within the posterior upper pole right kidney most suggestive of a cyst. Hypodense lesion involving the left kidney is indeterminate by noncontrast technique. Cortical defect posterio r upper pole left kidney could represent sequela of prior vascular or infectious insult. Nonobstructi ng left renal calculus measuring less than 5 mm. Postsurgical change involving the cervical spine mul tilevel hypertrophic and degenerative disc disease. A marker was placed over area of swelling in the posterior right chest. No definite underlying mass n oted. IMPRESSION: 1. Stable changes of granulomatous disease. Single noncalcified nodule right lower lobe stable. 2. A marker placed over the posterior right soft tissues demonstrates no underlying mass or abnormali ty. If there is a palpable abnormality correlate with ultrasound.
== END | disposition home or self-care (01) ==
LOC: RADCTMAIN 13:11
PROVIDERS: ATTEND Family Medicine
DX: D71 Functional disorders of polymorphonuclear neutrophils (principal); R91.1 Solitary pulmonary nodule
CPT/HCPCS: 71250

== ENCOUNTER → 2023-01-14 | Outpatient (CLI) | payer MEDICARE ==
--- NOTE | 2023-01-14 21:13 | CT ---
EXAMINATION TYPE: CT angio head neck CT DLP: 1407 mGycm, Automated exposure control for dose reduction was used. DATE OF EXAM: 01/14/2023 5:15 PM COMPARISON: Brain 11/13/2013. CLINICAL INDICATION:Male, 52 years old with history of M54.2 W19.XXXA M79.602; PHH, dizziness, off ba areli and headaches TECHNIQUE: Axially acquired helical CT angiogram of the head and neck was obtained with contrast. Axi al images are supplemented with 3D reconstructions which were post-processed at an [facility] NASCET criteria used. Contrast used:65 mL of Isovue 370 without and with IV Contrast, Oral contrast used: None. FINDINGS: CTA HEAD: No evidence of acute intracranial hemorrhage, mass effect, or midline shift. The ventricles, sulci, a nd cisterns are unremarkable. Hypoplastic right A1 segment. The visualized portions of the internal carotid arteries, middle cerebr al arteries, anterior cerebral arteries, and posterior cerebral arteries are patent. Minimal intracra nial atherosclerotic calcifications. The basilar and vertebral arteries are patent. CTA NECK: Right Carotid System: The common carotid artery and external carotid artery are patent. The carotid bifurcation demonstrate s no evidence of hemodynamically significant stenosis. The remaining portions of the internal carotid artery demonstrate normal size without significant narrowing. Left Carotid System: The common carotid artery and external carotid artery are patent. The carotid bifurcation demonstrate s no evidence of hemodynamically significant stenosis. The remaining portions of the internal carotid artery demonstrate normal size without significant narrowing. Vertebral arteries are patent without evidence hemodynamically significant stenosis. There is a three-vessel aortic arch. The origins of the great vessels are patent. No evidence of hemo dynamically significant stenosis. Upper thorax: Partially calcified lymph nodes seen within the mediastinum. Fixation hardware in the l ower cervical spine. IMPRESSION: 1. No evidence of dissection of the cervical internal carotid arteries or vertebral arteries or any e vidence of significant stenosis at the carotid bifurcations. 2. No evidence of intracranial high-grade stenosis or intracranial aneurysm.
== END | disposition home or self-care (01) ==
LOC: RADCTMAIN 16:02
PROVIDERS: ATTEND Family Medicine
DX: M54.2 Cervicalgia (principal); M53.82 Other specified dorsopathies, cervical region
CPT/HCPCS: 70496; 70498; Q9967